=== PATIENT | male | born 1975 | race Caucasian/White ===

== ENCOUNTER 2021-01-27 11:07 | Emergency (ER) | payer OTHER ==
[~2021-01-27] VITALS: Ht 182.9 cm; Wt 80.7 kg
[~2021-01-27 11:07] MED LIST: ALBU90I INH; AZIT250 PO; BENZ100A PO; CLIN150 PO; CRUTCH3 USE; ERYT500 PO; HYDACE5 PO; HYDGUAL120 PO; IBUP600 PO; LORA10ER; PENVK500 PO
== END 2021-01-27 12:00 | disposition home or self-care (01) ==
LOC: ER 11:07
DX: K04.7 Periapical abscess without sinus (principal); K02.9 Dental caries, unspecified; Z88.0 Allergy status to penicillin
CPT/HCPCS: 99283

== ENCOUNTER 2021-02-04 12:52 | Emergency (ER) | payer OTHER ==
[~2021-02-04] VITALS: Ht 182.9 cm; Wt 79.4 kg
[2021-02-04] MEDS ORDERED: CLIN300 PO (13:28)
== END 2021-02-04 13:35 | disposition home or self-care (01) ==
LOC: ER 12:52
DX: K04.7 Periapical abscess without sinus (principal); F17.200 Nicotine dependence, unspecified, uncomplicated; Z88.0 Allergy status to penicillin
CPT/HCPCS: 99282

== ENCOUNTER 2022-05-29 11:48 | Emergency (ER) | payer OTHER ==
[~2022-05-29] VITALS: Ht 182.9 cm; Wt 76.2 kg
[~2022-05-29 11:48] MED LIST changes: +CLIN300 PO
[2022-05-29] MEDS ORDERED: ALBU90OI INH (13:08)
[2022-05-29] MEDS ORDERED: PRED20 PO (13:08)
[2022-05-29] MEDS ORDERED: CODEINE-GUAIFE120 M1 PO (13:08)
== END 2022-05-29 13:18 | disposition home or self-care (01) ==
LOC: ER 11:48
DX: J06.9 Acute upper respiratory infection, unspecified (principal); F17.200 Nicotine dependence, unspecified, uncomplicated; Z79.899 Other long term (current) drug therapy
CPT/HCPCS: 71046; 99283-25